=== PATIENT | female | born 1985 | race Two or more races ===

== ENCOUNTER 2023-06-11 01:56 | Inpatient (IN) | payer MEDICAID, OTHER ==
[~2023-06-11] VITALS: Ht 170.2 cm; Wt 72.6 kg
[2023-06-11] MEDS ORDERED: ONDANSETRON HCL/PF 4 MG/2 ML VIAL IVP ONE (02:30)
[2023-06-11] MEDS ORDERED: ONDANSETRON HCL/PF 4 MG/2 ML VIAL ONE (02:59)
[2023-06-11 03:08] LABS: BASOPHILS # (AUTO) 0.1 K/uL (0.0-0.2); BASOPHILS % (AUTO) 0.5 % (0.0-2.0); EOSINOPHILS # (AUTO) 0.1 K/uL (0.0-0.7); EOSINOPHILS % (AUTO) 0.7 % (0.0-6.0); HEMATOCRIT 43 % (33-45); HEMOGLOBIN 14.4 g/dL (11.5-14.8); LYMPHOCYTES # (AUTO) 1.4 K/uL (0.8-4.8); LYMPHOCYTES % (AUTO) 12.8 % (20.0-44.0); MEAN CORPUSCULAR HEMOGLOBIN 30 PG (26.0-33.0); MEAN CORPUSCULAR HGB CONC 33 g/dl (31.0-36.0); MEAN CORPUSCULAR VOLUME 91 fL (82-100); NEUTROPHILS # (AUTO) 8.7 K/uL (1.8-8.9); PLATELET COUNT (AUTO) 291 K/uL (150-450); RED BLOOD CELL COUNT(AUTO) 4.77 MIL/uL (4.0-5.2); RED CELL DISTRIBUTION WIDTH 13.4 % (11.5-15.0); WHITE BLOOD COUNT (AUTO) 11.3 K/uL (4.3-11.0)
[2023-06-11 03:17] LABS: CALCIUM, SERUM 9.5 mg/dL (8.5-10.1)
[2023-06-11] MEDS ORDERED: KETOROLAC TROMETHAMINE 15 MG/ML VIAL ONE (03:18)
[2023-06-11] MEDS ORDERED: MORPHINE SULFATE INJ 4 MG/ML DISP.SYRIN ONE (03:19)
[2023-06-11 03:23] LABS: ALBUMIN 3.2 g/dL (3.4-5.0); BILIRUBIN,DIRECT 0.6 mg/dL (0.0-0.2); TOTAL PROTEIN, SERUM 8.8 g/dL (6.4-8.2)
[2023-06-11 03:25] LABS: LACTIC ACID 1.2 mmol/L (0.4-2.0)
[2023-06-11] MEDS ORDERED: MORPHINE SULFATE INJ 2 MG/ML DISP.SYRIN IV ONE (03:30)
[2023-06-11] MEDS ORDERED: KETOROLAC TROMETHAMINE 15 MG/ML VIAL IV ONE (03:30)
[2023-06-11 03:31] LABS: PARTIAL THROMBOPLASTIN TIME 30.3 SEC (24.3-34.3); PROTHROMBIN TIME 10.6 SECS (9.2-11.1)
[2023-06-11] MEDS ORDERED: ACETAMINOPHEN 325 MG TABLET PO PRN (04:30)
[2023-06-11] MEDS ORDERED: MAGNESIUM HYDROXIDE 30 ML UDC PO PRN (04:30)
[2023-06-11] MEDS ORDERED: Z GUARD REMEDY 4 OZ OINT TP PRN (04:30)
[2023-06-11] MEDS ORDERED: MAG HYDROX/AL HYDROX/SIMETH 30 ML UDC PO PRN (04:30)
[2023-06-11] MEDS ORDERED: IV D5/0.45 NACL 1,000 ML IV PRN (04:30)
[2023-06-11] MEDS ORDERED: ZOLPIDEM TARTRATE 5 MG TABLET PO PRN (04:30)
[2023-06-11 06:37] LABS: APPEARANCE,URINE CLEAR (CLEAR); BILIRUBIN,URINE 1+ (NEGATIVE); BLOOD, URINE 3+ Ery/uL (NEGATIVE); COLOR,URINE DARK YELLOW (YELLOW); KETONES,URINE NEGATIVE (NEGATIVE); LEUKOCYTE ESTERASE ,URINE NEGATIVE (NEGATIVE); NITRITE, URINE NEGATIVE (NEGATIVE); PH,URINE 6.5 (5.0-8.0); PROTEIN,URINE 1+ mg/dl (NEGATIVE); UGLUCOSE TRACE mg/dL (NEGATIVE)
[2023-06-11 06:39] LABS: ADD URINE CULTURE NO; BACTERIA,URINE Rare /HPF (None Seen); RBC,URINE 21-50 /HPF (0-2); SQUAMOUS EPITHELIAL CELL,UR Few /HPF (None Seen)
[2023-06-11 06:40] LABS: PREGNANCY TEST URINE QUAL NEGATIVE (NEGATIVE)
[2023-06-11] MEDS: PANTOPRAZOLE 40 MG VIAL IV SCH (09:00)
[2023-06-11] MEDS ORDERED: ANESTHESIA TRAY IN PYXIS 1 EA TRAY MC ONE (09:08)
[2023-06-11] MEDS ORDERED: BUPIVACAINE MPF 0.5% W/EPI INJ 30 ML VIAL ONE (09:09)
[2023-06-11] MEDS: ONDANSETRON HCL/PF 4 MG/2 ML VIAL IVP PRN ×3 (09:23→20:19)
[2023-06-11] MEDS ORDERED: ALBUMIN 5% 500 ML IV ONE (09:42)
[2023-06-11] MEDS ORDERED: ROCURONIUM BROMIDE 50 MG/5 ML ONE (09:42)
[2023-06-11] MEDS ORDERED: FENTANYL PF 100MCG/2ML AMPUL ONE (09:42)
[2023-06-11] MEDS ORDERED: MIDAZOLAM HCL 2 MG/2ML VIAL ONE (09:42)
[2023-06-11] MEDS ORDERED: LIDOCAINE 2% JEL UROJET 10 ML MM ONE (09:48)
[2023-06-11] MEDS ORDERED: CLINDAMYCIN IV RTU IN D5W 50 ML ONE (11:11)
[2023-06-11] MEDS: ALBUTEROL FS 2.5 MG/0.5 ML VIAL.NEB NEB SCH ×5 (11:30→23:56)
[2023-06-11] MEDS ORDERED: HYDROMORPHONE INJ 2 MG/ML DISP.SYRIN ONE (11:31)
[2023-06-11] MEDS ORDERED: BACITRACIN OPHTH OINT 3.5 GM TUBE ONE (12:18)
[2023-06-11] MEDS ORDERED: HYDROMORPHONE INJ 2 MG/ML DISP.SYRIN IV PRN (13:00)
[2023-06-11 15:02] VITALS: O2SAT 92
[2023-06-11 15:14] VITALS: O2SAT 99
[2023-06-11] MEDS: ZOSYN IVPB 3.375 G in IV D5W 50ml IV SCH ×2 (15:50→19:28)
[2023-06-11] MEDS: NICOTINE PATCH (21MG) 21 MG PATCH.TD24 TD SCH (16:33)
[2023-06-11 20:03] VITALS: O2SAT 94
[2023-06-11 20:04] VITALS: BP 113/73; TEMP 98.6; O2SAT 96
[2023-06-11] MEDS: HYDROMORPHONE INJ 2 MG/ML DISP.SYRIN IV PRN (20:11)
[2023-06-11 20:14] VITALS: O2SAT 99
[2023-06-11 22:00] VITALS: BP 113/73; TEMP 98.6; O2SAT 96
[2023-06-12] MEDS: HYDROMORPHONE INJ 2 MG/ML DISP.SYRIN IV PRN ×3 (01:16→08:54)
[2023-06-12] MEDS: ZOSYN IVPB 3.375 G in IV D5W 50ml IV SCH ×2 (02:36→08:54)
[2023-06-12] MEDS: ALBUTEROL FS 2.5 MG/0.5 ML VIAL.NEB NEB SCH ×3 (03:30→12:49)
[2023-06-12 05:04] LABS: HIV-1 p24 ANTIGEN NON REACTIVE (NONREACTIVE); HIV-1/2 ANTIBODY NON REACTIVE (NONREACTIVE)
[2023-06-12] MEDS: ONDANSETRON HCL/PF 4 MG/2 ML VIAL IVP PRN (05:28)
[2023-06-12 06:20] LABS: BASOPHILS % (AUTO) 0.2 % (0.0-2.0); EOSINOPHILS # (AUTO) 0.1 K/uL (0.0-0.7); EOSINOPHILS % (AUTO) 1.1 % (0.0-6.0); HEMATOCRIT 35 % (33-45); HEMOGLOBIN 11.8 g/dL (11.5-14.8); LYMPHOCYTES # (AUTO) 1.1 K/uL (0.8-4.8); LYMPHOCYTES % (AUTO) 15.3 % (20.0-44.0); MEAN CORPUSCULAR HEMOGLOBIN 31 PG (26.0-33.0); MEAN CORPUSCULAR HGB CONC 34 g/dl (31.0-36.0); MEAN CORPUSCULAR VOLUME 90 fL (82-100); NEUTROPHILS # (AUTO) 4.9 K/uL (1.8-8.9); NEUTROPHILS % (AUTO) 69.4 % (43.0-81.0); PLATELET COUNT (AUTO) 236 K/uL (150-450); RED BLOOD CELL COUNT(AUTO) 3.86 MIL/uL (4.0-5.2); RED CELL DISTRIBUTION WIDTH 13.2 % (11.5-15.0); WHITE BLOOD COUNT (AUTO) 7.1 K/uL (4.3-11.0)
[2023-06-12 06:51] LABS: CALCIUM, SERUM 8.3 mg/dL (8.5-10.1); CREATININE 0.6 mg/dL (0.6-1.3); PHOSPHORUS 3.7 mg/dL (2.5-4.9); POTASSIUM 3.5 mmol/L (3.5-5.1)
[2023-06-12 07:52] VITALS: O2SAT 99
[2023-06-12 08:00] VITALS: BP 145/106; TEMP 97.9; O2SAT 99
[2023-06-12] MEDS ORDERED: IV D5/ 0.9% NACL 1,000 ML IV PRN (08:00)
[2023-06-12 08:02] VITALS: O2SAT 99
[2023-06-12 08:07] LABS: HEPATITIS B SURFACE AB Non Reactive (.)
[2023-06-12] MEDS: NICOTINE PATCH (21MG) 21 MG PATCH.TD24 TD SCH (08:54)
[2023-06-12] MEDS: PANTOPRAZOLE 40 MG VIAL IV SCH (08:54)
[2023-06-12 12:50] VITALS: O2SAT 99
[2023-06-12] MEDS ORDERED: AMOX-430 PO (14:10)
[2023-06-12] MEDS ORDERED: HYDR-3972 PO (14:10)
[2023-06-12] MEDS ORDERED: ONDA4TAB5 PO (14:10)
== END 2023-06-12 15:45 | disposition home or self-care (01) | DRG 228 ==
LOC: ER 01:58 → MED 05:28
PROVIDERS: ADMIT Nurse Practitioner Acute Care; ATTEND Nurse Practitioner Acute Care
PROC: 0WUF0JZ Supplement Abdominal Wall with Synthetic Substitute, Open Approach (ICD-10-PCS; principal; 2023-06-11)
PROC: 05H633Z Insertion of Infusion Device into Left Subclavian Vein, Percutaneous Approach (ICD-10-PCS; 2023-06-11)
PROC: B547ZZA Ultrasonography of Left Subclavian Vein, Guidance (ICD-10-PCS; 2023-06-11)
DX: K42.0 Umbilical hernia with obstruction, without gangrene (principal); E22.2 Syndrome of inappropriate secretion of antidiuretic hormone; Z59.00 Homelessness unspecified; B19.20 Unspecified viral hepatitis C without hepatic coma; F15.10 Other stimulant abuse, uncomplicated; F11.10 Opioid abuse, uncomplicated; F12.10 Cannabis abuse, uncomplicated; K66.0 Peritoneal adhesions (postprocedural) (postinfection); F17.210 Nicotine dependence, cigarettes, uncomplicated; Z88.1 Allergy status to other antibiotic agents; F10.21 Alcohol dependence, in remission; K86.1 Other chronic pancreatitis
CPT/HCPCS: 36415; 80048-TC; 80076-TC; 81001; 83605-TC; 83690-TC; 83735-TC; 84100-TC; 84702-TC; 84703-TC; 85025-TC; 85730-TC; 86706; 86803; 87806; 94799-TC; A4223; C9113; G0378; J0330; J1100; J1170; J1885; J2250; J2270; J2405; J2543; J2704; J2765; J3010; J3490; J7030; J7042; J7060; J7120; P9045